=== PATIENT | male | born 1970 | race Caucasian/White ===

== ENCOUNTER 2020-02-21 15:30 | Outpatient (RCR) | payer OTHER, SELFPAY ==
--- NOTE | 2020-01-01 08:23 | HP.PTEVAL ---
Patient's Visit Information NAOMY RIGGINS is a 49 year old M referred to Physical Therapy by Dr. Ritchie Robertson MD with a diagnosis of cervical DDD, L superior glenoid labrum lesion, L rotator cuff tear. Date of Evaluation: 12/31/19 Physical Therapist: Issac Andres DPT - Visit Plan Frequency: 5x /Week Duration: 4 Weeks Plan: Start with work condition exercises. Focus on B UE strength/endurance. Add in overhead strengthening. Include cardiovascular exercises as well. 1st week x5 days at 2 hours. 2nd week 3 hours x5 days, 3rd and 4th weeks 4 hours x5 days a week. - Subjective Pt. is here today for his initial evaluation with diagnosis of cervical DDD, strain of thoracic wall, L shoulder strain, L superior glenoid labrum lesion, L rotator cuff tear. Pt. in 2018 had an accident at work when he caught a heavy piece of equipment resulting in L neck pain and L shoulder pain. Subsequently a C6/C7 fusion and L RTC repair. Pt. has been out of work for ~2 years. 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 Pt. is hopeful to get back to all work and recreational activities without limitations. He is no longer taking a pain medications. No N/T in either UE. Pt. reports no difficulty with sleeping. He is having trouble with his strength. I don't feel comfortable raising weight ove rmy head. Work activities: Pt. reports having to lift upto 100lbs about head height, bending down lifting objects of the floor, getting on/off floor, does have to get in akward positions with his arm and back, he is also going to have to work for minutes with arm over his head. - Pain Cervical spine Pain Intensity (Out of 10): 0 L shoulder Pain Intensity (Out of 10): 0 Pain Intensity Range: 2 Comment: with activity, recduces with in a few hours - Objective POSTURE: Pt. has decent posture in stance. He has normal cervical spine positoning. Pt. has slight rounded shoulders, but minimall. Pt is able to correct with Vcing. PALPATION: Pt. has tenderness as subacromial space on L shoulder and slight soreness at L UT. No pain other vazquez. NEURO: Pt. has no sensation loss and normal DTR of BUEs. ROM: AROM: CERVICAL SPINE: flexion- min/nil loss NE, extension- min/nil loss NE, rotation- nil loss NE bilat, SB min/nil loss NE bilat. AROM: L shoulder- flexion 172deg, abd 175deg, functional ER C6, functional IR L3. MIld increase in soreness with overhead and functional IR motions. 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 R shoulder- flexion 38.8lbs, abd 37.9lbs, ER 31.1lbs, IR 50Lbs. L shoulder; flex 25lbs, abd 24.9; ER 21.4lbs, IR 32.8lbs Good LE strength, no issues with this musculature. overhead fleixon 15.7 at 170deg of flexon. GAIT: Pt. has normal gait pattern no issues. 6 MWT- .23miles on treadmill - Goals Goal 1:: LTG: Pt. to be I with HEP. Goal Time Frame: 4-6 Weeks Goal 2:: STG: Pt. to tolerate 3 hours of physicial activity. Goal Time Frame: 2-4 Weeks Goal 3:: LTG: Pt. to tolerate hours or physical activity. Goal Time Frame: 4-6 Weeks Goal 4:: LTG: Pt to lift 15lbs over head for 15 reps with LUE. Goal Time Frame: 4-6 Weeks Goal 5:: LTG: Pt. to have increased L shoulder strength by 5lbs in all effected L shoulder musculature. Goal Time Frame: 4-6 Weeks Goal 6:: LTG: Pt. to have increased overall cardiovascular fitness indicated by walking 0.36 miles during 6 MWT. Goal Time Frame: 4-6 Weeks - Rehabilitation Potential Physical Therapy Diagnosis: Pt. has signs and symptoms consistent with Cervcial spinal fusion and R RTC tear,biceps tear with subsequent repair. Pt. would benefit from work conditioning program to increase over head L UE strength, LUE strength, overall endurance to increase work tolerance. Rehabilitation Potential: Excellent - Anticipated Interventions Patient/Client Instruction: Educate patient on: Condition, Plan of Care, Risk Factors, Benefits of Fitness Program For the Purpose of:: To improve decision making, To facilitate caregiver knowledge, To improve self management, To prevent re-injury, To improve ability to perform tasks related to life management, To improve tolerance to ADL's Therapeutic Exercise to Include: Strength training, Endurance training For the Purpose of:: To decrease pain, To increase ROM, To improve nutrient delivery to tissue, To increase oxygenation perfusion Functional Training to Include: Functional work training For the Purpose of:: To improve muscle performance and motor function, To improve ability to perform ADL's, To increase flexibility/ROM Thank you for the opportunity to evaluate your patient. For Medicare and Medicare HMO plans, please review the plan of care and approve it. It will need to be FAXED BACK to us at [phone] for Medicare purposes. For Medicare only, by signing this I certify the plan of care. Please let me know if there are questions or concerns regarding this plan of care. Physician Signature: Date:
--- NOTE | 2020-01-18 09:15 | HP.PTREVAL ---
Dr. Ritchie Robertson MD, It has been my pleasure to treat NAOMY RIGGINS over the last 14 visits for cervical DDD, L superior glenoid labrum lesion, L rotator cuff tear. Please see the progress note below for an update on the physical therapy plan of care! Subjective: Pt reports being generally sore this date. C/o inc soreness in R knee. Other than knee being sore states he is feeling stronger. Objective/Function: Did not complete LE exs this date d/t R knee soreness. Focused on UE exs and LE stretching. Pt was able to complete 15 reps of L shoulder overhead press w/ 15# KB. Pt displayed inc L shoulder strength by at least 5# in all planes. He is doing well tolerating 3+ hours of work conditioning at this point in time. He is very consistent with his exercises adn activities and is a hard worker. I am pleased with his progress at this point intime. He does have some soreness in L shoulder with repetative overhead activities, but is minimal. He is also experiencing some mild L knee pain, but is overalling doing well. Plan Plan: Start with work condition exercises. Focus on B UE strength/endurance. Add in overhead strengthening. Include cardiovascular exercises as well. 1st week x5 days at 2 hours. 2nd week 3 hours x5 days, 3rd and 4th weeks 4 hours x5 days a week. Patient may benefit from easing back into work 4 hours a day and maybe coming to therapy x1 hour a day for a week to ease back into work. Goals Goal 1:: LTG: Pt. to be I with HEP. Goal Time Frame: 4-6 Weeks Goal Progress: Progressing Goal 2:: STG: Pt. to tolerate 3 hours of physicial activity. Goal Time Frame: 2-4 Weeks Goal Progress: Goal Met Goal 3:: LTG: Pt. to tolerate 6 hours of physical activity. Goal Time Frame: 4-6 Weeks Goal Progress: Progressing Goal 4:: LTG: Pt to lift 15lbs over head for 15 reps with LUE. NEW GOAL 01/17/20: Pt to lift 20lbs over head for 15 reps with LUE. Goal Time Frame: 4-6 Weeks Goal Progress: Progressing Goal 5:: LTG: Pt. to have increased L shoulder strength by 5lbs in all effected L shoulder musculature. NEW GOAL 01/17/20: Pt to have increased L shoulder strength by 10lbs in all effected shoulder musculature. Goal Time Frame: 4-6 Weeks Goal Progress: Progressing Goal 6:: LTG: Pt. to have increased overall cardiovascular fitness indicated by walking 0.36 miles during 6 MWT. Goal Time Frame: 4-6 Weeks Anticipated Interventions Patient/Client Instruction: Educate patient on: Condition, Plan of Care, Risk Factors, Benefits of Fitness Program For the Purpose of:: To improve decision making, To facilitate caregiver knowledge, To improve self management, To prevent re-injury, To improve ability to perform tasks related to life management, To improve tolerance to ADL's Therapeutic Exercise to Include: Strength training, Endurance training For the Purpose of:: To decrease pain, To increase ROM, To improve nutrient delivery to tissue, To increase oxygenation perfusion Functional Training to Include: Functional work training For the Purpose of:: To improve muscle performance and motor function, To improve ability to perform ADL's, To increase flexibility/ROM Please do not hesitate to contact me at [phone] by phone or if you have questions or concerns regarding this new plan of care! Sincerely, Issac Andres DPT
--- NOTE | 2020-02-07 07:53 | HP.PTREVAL ---
Dr. Ritchie Robertson MD, It has been my pleasure to treat NAOMY RIGGINS over the last 25 visits for cervical DDD, L superior glenoid labrum lesion, L rotator cuff tear. Please see the progress note below for an update on the physical therapy plan of care! Subjective: Pt reports having inc pain and soreness in L shoulder this date. Believes it is from holding things out in front of him for extended periods of time. States the soreness does not seem to be getting better from day to day at work. He is still having pain after work 3-07/12 pain that is worse as the week goes on. Objective/Function: Pt jj exs well w/ no inc in s/s. Pt reported a decrease in L shoulder/neck pain from 11/11 to 06/11. Would recommend continuing w/ 4 hour work days for about 2 weeks and continuing w/ PT sessions 2-3x/wk during that time. Pt would benefit from further PT intervention d/t still having difficulties w/ work tolerance while only working half days. Pt has demonstrated that continued PT intervention has been beneficial in reducing pain status and relieving tightness in the L shoulder/neck region. Pt also believes this is the correct way to go from here to allow himself more time to increase his tolerance to work activities. Plan Plan: I would recommend that he continue on his 4 hour a day schedule at least for another week or two allowing him to have better tolerance and reduced symptoms after his work day prior to extending his hours. PT is helping with reducing his symptoms after work, but is progressing with self management, but not quite there yet. Goals Goal 1:: LTG: Pt. to be I with HEP. Goal Time Frame: 4-6 Weeks Goal Progress: Progressing Goal 2:: STG: Pt. to tolerate 3 hours of physicial activity. Goal Time Frame: 2-4 Weeks Goal Progress: Goal Met Goal 3:: LTG: Pt. to tolerate 6 hours of physical activity. Goal Time Frame: 4-6 Weeks Goal Progress: Progressing Goal 4:: LTG: Pt to lift 15lbs over head for 15 reps with LUE. NEW GOAL 01/17/20: Pt to lift 20lbs over head for 15 reps with LUE. Goal Time Frame: 4-6 Weeks Goal Progress: Progressing Goal 5:: LTG: Pt. to have increased L shoulder strength by 5lbs in all effected L shoulder musculature. NEW GOAL 01/17/20: Pt to have increased L shoulder strength by 10lbs in all effected shoulder musculature. Goal Time Frame: 4-6 Weeks Goal Progress: Progressing Goal 6:: LTG: Pt. to have increased overall cardiovascular fitness indicated by walking 0.36 miles during 6 MWT. Goal Time Frame: 4-6 Weeks Anticipated Interventions Patient/Client Instruction: Educate patient on: Condition, Plan of Care, Risk Factors, Benefits of Fitness Program For the Purpose of:: To improve decision making, To facilitate caregiver knowledge, To improve self management, To prevent re-injury, To improve ability to perform tasks related to life management, To improve tolerance to ADL's Therapeutic Exercise to Include: Strength training, Endurance training For the Purpose of:: To decrease pain, To increase ROM, To improve nutrient delivery to tissue, To increase oxygenation perfusion Functional Training to Include: Functional work training For the Purpose of:: To improve muscle performance and motor function, To improve ability to perform ADL's, To increase flexibility/ROM Please do not hesitate to contact me at [phone] by phone or if you have questions or concerns regarding this new plan of care! Sincerely, Issac Andres DPT
--- NOTE | 2020-02-11 07:56 | HP.PTREVAL ---
Dr. Ritchie Robertson MD, It has been my pleasure to treat NAOMY RIGGINS over the last 26 visits for cervical DDD, L superior glenoid labrum lesion, L rotator cuff tear. Please see the progress note below for an update on the physical therapy plan of care! Subjective: Pt. reports that he is slowly increasing his tolerance to all work activities. He is working 4 hours a day 5 days a week now. He is still getting pain in L UT and L shoulder at the end of the day, worsening as the week goes on. He is HEP compliant and reports stretcing in evenings after work does help. No mechanical events that have caused sharp pains noted. Objective/Function: I did a lot of L shoulder stretching this date as he was sore from work day. He did have good relief after wards. He has overall good mobility still. He has been having some pain at subacromial joint, but improves with stretching. He is tolerating his current work schedule, but not much else. He would most likely benefit from continued schedule until have better tolerance to this as he is having higher than desired levels of pain by the end of the day. He is also reporting some L UT and thoracic spine tightness/stifffness. He might benefit from some chiropratic care to reduce this acute stiffness as well. Plan Plan: I would recommend continued PT a couple times per week for general stretching guidence and some RTC stability and possibly chiro care to work on thoracic spine. Goals Goal 1:: LTG: Pt. to be I with HEP. Goal Time Frame: 4-6 Weeks Goal Progress: Goal Met Goal 2:: STG: Pt. to tolerate 3 hours of physicial activity. Goal Time Frame: 2-4 Weeks Goal Progress: Goal Met Goal 3:: LTG: Pt. to tolerate 6 hours of physical activity. Goal Time Frame: 4-6 Weeks Goal Progress: Progressing Goal 4:: LTG: Pt to lift 15lbs over head for 15 reps with LUE. NEW GOAL 01/17/20: Pt to lift 20lbs over head for 15 reps with LUE. Goal Time Frame: 4-6 Weeks Goal Progress: Goal Met Goal 5:: LTG: Pt. to have increased L shoulder strength by 5lbs in all effected L shoulder musculature. NEW GOAL 01/17/20: Pt to have increased L shoulder strength by 10lbs in all effected shoulder musculature. Goal Time Frame: 4-6 Weeks Goal Progress: Goal Met Goal 6:: LTG: Pt. to have increased overall cardiovascular fitness indicated by walking 0.36 miles during 6 MWT. Goal Time Frame: 4-6 Weeks Goal Progress: Goal Met Anticipated Interventions Patient/Client Instruction: Educate patient on: Condition, Plan of Care, Risk Factors, Benefits of Fitness Program For the Purpose of:: To improve decision making, To facilitate caregiver knowledge, To improve self management, To prevent re-injury, To improve ability to perform tasks related to life management, To improve tolerance to ADL's Therapeutic Exercise to Include: Strength training, Endurance training For the Purpose of:: To decrease pain, To increase ROM, To improve nutrient delivery to tissue, To increase oxygenation perfusion Functional Training to Include: Functional work training For the Purpose of:: To improve muscle performance and motor function, To improve ability to perform ADL's, To increase flexibility/ROM Please do not hesitate to contact me at [phone] by phone or if you have questions or concerns regarding this new plan of care! Sincerely, KIRBY VasquezT
--- NOTE | 2020-02-22 09:39 | HP.PTREVAL ---
Dr. Ritchie Robertson MD, It has been my pleasure to treat NAOMY RIGGINS over the last 32 visits for cervical DDD, L superior glenoid labrum lesion, L rotator cuff tear. Please see the progress note below for an update on the physical therapy plan of care! Subjective: Pt reports that his shoulder is feeling a little more stiff and sore today. Pt. is to follow up with physician for her L shoulder next week. Overall he reports slowly incease in tolerance to work activities, but does feel like it is better recently after reducing some overhead activities at work. Objective/Function: Pt jj exs well w/ no inc in symptoms. Pain was reduced to 2/10 at end of session. Plan Plan: Pt. to follow up with L shoulder physician next week. Goals Goal 1:: LTG: Pt. to be I with HEP. Goal Time Frame: 4-6 Weeks Goal Progress: Goal Met Goal 2:: STG: Pt. to tolerate 3 hours of physicial activity. Goal Time Frame: 2-4 Weeks Goal Progress: Goal Met Goal 3:: LTG: Pt. to tolerate 6 hours of physical activity. Goal Time Frame: 4-6 Weeks Goal Progress: Progressing Goal 4:: LTG: Pt to lift 15lbs over head for 15 reps with LUE. NEW GOAL 01/17/20: Pt to lift 20lbs over head for 15 reps with LUE. Goal Time Frame: 4-6 Weeks Goal Progress: Goal Met Goal 5:: LTG: Pt. to have increased L shoulder strength by 5lbs in all effected L shoulder musculature. NEW GOAL 01/17/20: Pt to have increased L shoulder strength by 10lbs in all effected shoulder musculature. Goal Time Frame: 4-6 Weeks Goal Progress: Goal Met Goal 6:: LTG: Pt. to have increased overall cardiovascular fitness indicated by walking 0.36 miles during 6 MWT. Goal Time Frame: 4-6 Weeks Goal Progress: Goal Met Anticipated Interventions Patient/Client Instruction: Educate patient on: Condition, Plan of Care, Risk Factors, Benefits of Fitness Program For the Purpose of:: To improve decision making, To facilitate caregiver knowledge, To improve self management, To prevent re-injury, To improve ability to perform tasks related to life management, To improve tolerance to ADL's Therapeutic Exercise to Include: Strength training, Endurance training For the Purpose of:: To decrease pain, To increase ROM, To improve nutrient delivery to tissue, To increase oxygenation perfusion Functional Training to Include: Functional work training For the Purpose of:: To improve muscle performance and motor function, To improve ability to perform ADL's, To increase flexibility/ROM Please do not hesitate to contact me at [phone] by phone or if you have questions or concerns regarding this new plan of care! Sincerely, KIRBY VasquezT
--- NOTE | 2020-05-14 10:12 | HP.PT.NRP ---
NAOMY RIGGINS was seen in my office for initial evaluation on 12/31/19. The following Plan of Care was established for this patient: Initial Frequency: 5x /Week Initial Duration: 4 Weeks Patient/Client Instruction: Educate patient on: Condition, Plan of Care, Risk Factors, Benefits of Fitness Program For the Purpose of:: To improve decision making, To facilitate caregiver knowledge, To improve self management, To prevent re-injury, To improve ability to perform tasks related to life management, To improve tolerance to ADL's Therapeutic Exercise to Include: Strength training, Endurance training For the Purpose of:: To decrease pain, To increase ROM, To improve nutrient delivery to tissue, To increase oxygenation perfusion Functional Training to Include: Functional work training For the Purpose of:: To improve muscle performance and motor function, To improve ability to perform ADL's, To increase flexibility/ROM This patient was last seen in our office 02/21/20. Pertinent comments regarding their Physical therapy will appear below: Pt. did well with PT. He progress well with his work conditioning progression. He was back to work 6+ hours a day when I last saw him and was tolerating better by the week. He has not been seen in several weeks and will be DC from PT at this point in time. At this point I will be discontinuing this patient from physical therapy. I would be happy to see this patient again in the future if found appropriate by the physician. Thank you! Issac Andres, KIRBYT
== END 2020-02-21 19:00 | disposition home or self-care (01) ==
LOC: PT 15:30
PROVIDERS: PCP Family Medicine; Referring Provider Chiropractor; Visit Provider Chiropractor
DX: M50.323 Other cervical disc degeneration at C6-C7 level (principal); M99.51 Intervertebral disc stenosis of neural canal of cervical region; S29.012D Strain of muscle and tendon of back wall of thorax, subsequent encounter; S16.1XXD Strain of muscle, fascia and tendon at neck level, subsequent encounter; S43.432D Superior glenoid labrum lesion of left shoulder, subsequent encounter; S46.012D Strain of muscle(s) and tendon(s) of the rotator cuff of left shoulder, subsequent encounter
CPT/HCPCS: 97161

== ENCOUNTER 2022-09-13 08:17 | Outpatient (RCR) | payer OTHER, SELFPAY | END 2022-09-13 15:16 | disposition home or self-care (01) | LOC: OT 08:17 | PROVIDERS: PCP Student in an Organized Health Care Education/Training Program; Referring Provider Chiropractor; Visit Provider Chiropractor | DX: S46.012D Strain of muscle(s) and tendon(s) of the rotator cuff of left shoulder, subsequent encounter (principal); S29.012D Strain of muscle and tendon of back wall of thorax, subsequent encounter; M99.51 Intervertebral disc stenosis of neural canal of cervical region; M50.323 Other cervical disc degeneration at C6-C7 level; S43.402D Unspecified sprain of left shoulder joint, subsequent encounter; S16.1XXD Strain of muscle, fascia and tendon at neck level, subsequent encounter; S43.432D Superior glenoid labrum lesion of left shoulder, subsequent encounter; M50.322 Other cervical disc degeneration at C5-C6 level ==

== ENCOUNTER → 2022-09-28 | Outpatient (CLI) | payer OTHER, SELFPAY ==
--- NOTE | 2022-09-28 | ASPOS_PTH ---
PATIENT: NAOMY RIGGINS LOC: LAB U#:[id number] AGE/SX: 52/M ROOM: RE09/28/[address]: Dr. Ernesto Cruz MD : 1970 BED: DIS: 09/28/2022 SPEC #: [id number] RECD: 09/28/22 11:39 STATUS: NIELS SIMON #: [id number] CRIS: 09/28/22 00:[address]: Ernesto Cruz DEPT: CYTOLOGY RECD BY: Alfredo Rogel ENTERED: 09/28/22 11:39 SP TYPE: ASP HERE OTHR DR: Dr. Johnie Pompa, DO Tissues: Neck, NOS Procedures: Surgery Specimen Level IV Cytology Other Fine Needle Asp on Site HEADER OPERATION: Fine needle aspiration submental mass PRE-OP DIAGNOSIS: Submental mass TISSUE SUBMITTED: Submental mass DIAGNOSIS CYTOLOGY Fine needle aspiration, submental mass (smears and cell block): Consistent with epidermal inclusion cyst. AM:olivia 09/29/2022 COMMENT A fine needle aspiration was performed and the specimen is evaluated at the time of FNA by Dr. Velasco. Immediate Evaluation = Consistent with epidermal inclusion cyst. CYTOLOGY STUDY Slides are reviewed. CYTOLOGY GROSS Received is 0.2 ml of lai material labeled with the patient's name, and designated submental mass. Four imprints and two paps are made from the submitted fluid and the rest is added to CytoLyt for cell block preparation. Submitted for cytology study. / AM:olivia 09/28/2022 TC:5 CPT: 52602, 17758, 00619, 41219
== END | disposition home or self-care (01) ==
LOC: LAB 09:21
PROVIDERS: PCP Student in an Organized Health Care Education/Training Program; Referring Provider Otolaryngology; Visit Provider Otolaryngology
DX: R22.1 Localized swelling, mass and lump, neck (principal)
CPT/HCPCS: 10021; 88161; 88305

== ENCOUNTER 2022-11-24 07:00 | Outpatient (RCR) | payer OTHER, SELFPAY ==
--- NOTE | 2022-06-17 12:04 | HP.PTEVAL_ITS ---
Patient's Visit Information NAOMY RIGGINS is a 51 year old M referred to Physical Therapy by Dr. Ritchie Robertson MD with a diagnosis of L shoulder pain. Date of Evaluation: 06/17/22 Physical Therapist: Ritchie Puente, PT, ATC - Visit Plan Frequency: 3x /Week Duration: 6 Weeks Plan: R shoulder advanced rotator cuff strengthening, scap stab ex's, UBE, and HEP - Subjective DOI 12/23/2017. Pt reports he injured his L shoulder and neck at work at that time. Pt notes he has since had 1 neck surgery and 2 shoulder surgeries. Pt reports his shoulder and neck did recover well enough to return to work, but while he was working, he had to perform duties that were beyond his work restrictions which has resulted in the return of L shoulder pain. Pt reports his last surgery was november of 2021, and he did outpatient therapy through May of this year. Pt reports he is now here for 6 more weeks of PT, and then he will be transitioning to work conditioning for another 8 weeks. Pt reports he has occasional tingling in lateral 2 fingers of L hand. Pt reports his L shoulder never stops aching, which results in significant sleep difficulty at this time. Pt is R hand dominant. Pt reports any overhead lifting is what causes him the most pain. L shoulder pain ranges right now from 6-8/10. - Pain L shoulder pain Pain Intensity (Out of 10): 6 Pain Intensity Range: 8 - Objective Neuro: B UE sensation is WNL to light touch. B bicipital reflex= 2/3. Palpation: Pt is still sore along the distribution of the supraspinatus and LHB tendons. ROM: R shoulder flex= 180, abd= 170, ER= 50, IR WNL; L shoulder flex= 135, abd= 125, ER= 35, IR= WNL. MMT: R shoulder flex= 26, abd= 34, ER= 21, IR= 28 #F; L shoulder flex= 10, abd= 10, ER= 18, IR= 6.5 #F - Balance/Special Test Scores Quick DASH Score: 43.1800 - Goals Goal 1:: Decrease L shoulder pain x 50% to aid with sleep Goal Time Frame: 4-6 Weeks Goal 2:: Increase L shoulder ROM flexion and abduction x 30 degrees to aid with overhead lifting Goal Time Frame: 4-6 Weeks Goal 3:: Increase L shoulder flexion and abduction strength x 10 #F to aid with overhead activity Goal Time Frame: 4-6 Weeks Goal 4:: I with HEP Goal Time Frame: 4-6 Weeks - Rehabilitation Potential Physical Therapy Diagnosis: L shoulder pain, weakness, and limited ROM secondary to L shoulder labral tear Rehabilitation Potential: Good - Anticipated Interventions Patient/Client Instruction: Educate patient on: Condition, Plan of Care For the Purpose of:: To improve self management Therapeutic Exercise to Include: Strength training, Endurance training, Scapular Strength/Stabilization For the Purpose of:: To decrease pain, To increase ROM, To improve muscle performance and motor function Cryotherapy (ice pack, ice massage): Yes For the Purpose of:: To decrease pain Thank you for the opportunity to evaluate your patient. For Medicare and Medicare HMO plans, please review the plan of care and approve it. It will need to be FAXED BACK to us at [phone] for Medicare purposes. For Medicare only, by signing this I certify the plan of care. Please let me know if there are questions or concerns regarding this plan of care. Physician Signature: Da te:
--- NOTE | 2022-07-07 08:00 | HP.PTREVAL ---
Dr. Ritchie Robertson MD, It has been my pleasure to treat NAOMY RIGGINS over the last 9 visits for L shoulder pain. Please see the progress note below for an update on the physical therapy plan of care! Subjective: I was really sore after last visit. Objective/Function: L shoulder pain ranges from 6-9/10 at this time. L shoulder ROM: flex= 140, abd= 130 degrees. L shoulder MMT: flex= 13, abd= 16 #F. Pt is progressing well at this time. Plan Plan: R shoulder advanced rotator cuff strengthening, scap stab ex's, UBE, and HEP Balance/Gait/Functional tests - Balance/Special Test Scores Quick DASH Score: 40.9075 Goals Goal 1:: Decrease L shoulder pain x 50% to aid with sleep Goal Time Frame: 4-6 Weeks Goal Progress: Progressing Goal 2:: Increase L shoulder ROM flexion and abduction x 30 degrees to aid with overhead lifting Goal Time Frame: 4-6 Weeks Goal Progress: Progressing Goal 3:: Increase L shoulder flexion and abduction strength x 10 #F to aid with overhead activity Goal Time Frame: 4-6 Weeks Goal Progress: Progressing Goal 4:: I with HEP Goal Time Frame: 4-6 Weeks Goal Progress: Progressing Anticipated Interventions Patient/Client Instruction: Educate patient on: Condition, Plan of Care For the Purpose of:: To improve self management Therapeutic Exercise to Include: Strength training, Endurance training, Scapular Strength/Stabilization For the Purpose of:: To decrease pain, To increase ROM, To improve muscle performance and motor function Cryotherapy (ice pack, ice massage): Yes For the Purpose of:: To decrease pain Please do not hesitate to contact me at [phone] by phone or if you have questions or concerns regarding this new plan of care! Sincerely, Ritchie Puente, PT, ATC
--- NOTE | 2022-09-15 11:08 | HP.OTFCE_ITS ---
Floor (Occasional 1-33% of Day): 40# light medium Floor (Frequent 34-66% of Day): 20# light medium Floor (Constant 67-100% of Day): 4.2# negligable Floor PDL: Light-Medium Knee (Occasional 1-33% of Day): 60# medium Knee (Frequent 34-66% of Day): 30# medium Knee (Constant 67-100% of Day): 12.6# medium Knee PDL: Medium Waist (Occasional 1-33% of Day): 60# medium Waist (Frequent 34-66% of Day): 30# medium Waist (Constant 67-100% of Day): 12.6# medium Waist PDL: Medium Shoulder (Occasional 1-33% of Day): 40# light medium Shoulder (Frequent 34-66% of Day): 20# light medium Shoulder (Constant 67-100% of Day): 8.4# light medium Shoulder PDL: Light-Medium Overhead (Occasional 1-33% of Day): 40# light medium Overhead (Frequent 34-66% of Day): 20# light medium Overhead (Constant 67-100% of Day): 8.4# light medium Overhead PDL: Light-Medium Comments: most difficulty with overhead lifting Bending: Constant Ability (67-100% of day) Squatting: Occasional Ability (1-33% of day) Comments: low occasional due to arthritic knees and increased pain Kneeling: No Ablility (0% of day) Comments: due to arthritic knees Reaching out: Constant Ability (67-100% of day) Reaching up: Constant Ability (67-100% of day) Sitting: Constant Ability (67-100% of day) Walking: Constant Ability (67-100% of day) Standing: Constant Ability (67-100% of day) Duration Sedentary Sedentary Light Light Light Medium Medium Medium Heavy Very Heavy Heavy Occasional (0-33% of day) Frequent (34-66% of day) Constant (67-100% of day) 10 # Negligible Negligible 15 # 8 # Negligible 20 # 10# Negli. 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 Continued working and rec'd rehab for 12 weeks. June 2018 - neck surgery fusion cervical spine 5, 6, 7 vertebrae. May of 2019 - shoulder surgery to fix bicep and tendon - Off work this entire time /c workers comp. Started back working Fall 2019 and then re-injured shoulder in February 2021 and then had surgery in July. July of 2021 - labral tear/rotator cuff second shoulder surgery. At this time patient stopped working and has been on workers comp since. . Patellar arthritis bilaterally - cortisone injections in B knees every 4 months. Reports it only lasts a couple days. arthritis affecting all joints of his body, most impacted by his knees. history of decreased heart function - recent improvement in heart function from new heart medication, 45% to 50% heart function. history of hypertension. Medications currently taking: blood pressure medications. heart medication ranolazine - 500 mg BID to strengthen heart. allergy meds. inhaler/asthma early stages of COPD. PRN motrin. PRN prilosec. 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 arthritis in all joints - and reports he is experiencing nerve compression in the joints as wel Symptoms: at rest: L shoulder aches all the time. with activity/movement: popping feeling in the L shoulder with anterior reaching, fatigue and slow recovery time, deep ache that gets worse with activity. tingling in L 4th and 5th digits comes and goes reports unrelated to activity - reports from ulnar nerve compression in the elbow/ narrowing of the passage of the nerve is causing this. shortness of breath with activity (September 23 getting a biopsy of a growth under chin - could be why he's feeling short of breath per his report) Pain: at rest L shoulder 3-4/10 (didn't take any motrin today so he can get a true pain reading). with activity: 6-7/10. 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 Job duties include standing the majority of the time, reaching and lifting overhead, squating, crawling, and a 100 pound lifting requirement. He is reaching and lifting overhead ~50% of the time. 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 Behavioral: Patient was cooperative and agreeable to participate in all activities of the task. He was able to maintain social eye contact and communicate verbally. ADLS: Patient is independent with activities of daily living and home mgmt tasks. home set-up: lives with in a multi-level home, 5 DINA with HR. Kitchen and living room on the main floor, no bathroom. Upstairs and basement with a handrail, 12 steps up or down. Bedroom upstairs. Walk in shower. Physical Examination: Patient well appearing, general ROM intact, able to use both arms/legs functionally. Indep with functional ambulation and transfers. Patient wears glasses. ROM: general range of motion within normal limits Strength: tested using the FET 2 dynamometer in pounds of force: R shoulder flexion/extension: 35.9/52.9. L shoulder flexion/extension: 19.3/26. R elbow flexion/extension: 27.2/35.8. L elbow flexion/extension: 24.1/12.7. R hip flexion: 36. L hip flexion: 31.3. R knee flexion/extension: 36/29. L knee flexion/extension: 31/39 Right Milk Truck Driver Strength Average: 142.33 Right Milk Truck Driver Strength Percentile: 84.1 Left Milk Truck Driver Strength Average: 59.00 Left Milk Truck Driver Strength Percentile: 1.8 Right Lateral Pinch Average: 26.00 Right Lateral Pinch Percentile: >90 Left Lateral Pinch Average: 13.66 Left Lateral Pinch Percentile: <10 percentile Right Tripod Pinch Average: 21.33 Right Tripod Pinch Percentile: 75th percentile Left Tripod Pinch Average: 13.00 Left Tripod Pinch Percentile: between 10 -25th percentile Comments: Patient consistently weaker with L handed activities and began to have some tremors toward the end of testing indicating fatigue Sensation: monofilament testing: all digits at 2.83 level sensation, indicating normal sensation. R index at 3.22 indicating slightly impaired sensation. Fine Motor: fine motor skills intact, no concerns reported or observed Balance: no loss of balance noted throughout assessment Bending: Patient demonstrated the ability to reach 3/3 times and 10/10 times without assist or difficulty. Patient's HR reached 104 immediately after. Squatting: Patient completed 3 squats and reported increased pain to 6/10 in B knees. Patient unable to complete 10 times consecutively due to reported pain. Patient's HR immediately after was 108. Kneeling: Patient with difficulty kneeling due to arthritis and pain in B knees. Patient with plans to have surgery for B knees. Reaching out/up: Completed reaching out and up 3 times, HR at 95. Then 10 times HR at 105. No difficulty noted. Walking: Patient ambulated for 15 minutes straight at a walking pace (2.8 speed). HR measured at 5 min: 129, then 10 min: 130, then 15 min: 127. No loss of balance or difficulty walking. Standing: Patient remained standing for ~30 minutes without needing seated rest break. No loss of balance or shortness of breath with standing tasks. Sitting: Patient demonstrated ability to sit for 60 minutes with no apparent distress or discomfort. Climbing Stairs: Patient used a reciprocal gait pattern to ascend and descend a flight of stairs. No loss of balance or assist needed. HR 124 after stairs. Floor Lift: maximum weight to lift is 40# from this height, patient relying heavily on R UE, denied pain with this lift Knee Lift: maximum weight to lift is 60# from this height, good performance with this and good ergonomics with lifting Waist Lift: maximum weight to lift is 60# from this height, good ergonomics with lifting Shoulder Lift: maximum weight to lift is 40# from this height, more difficulty noted at this height Overhead Lift: maximum weight to lift is 25# from this height, more difficulty noted at this height Carrying: maximum weight to lift is 40# from this height, HR after 116 Comments: most difficulty with overhead lift
--- NOTE | 2022-09-15 11:08 | HP.OTFCE.D ---
FCE D/C Summary - Discharge NAOMY Joslyn VAISHNAVI was seen for a one time visit for an FCE on 09/13/22 and is discharged.
--- NOTE | 2022-10-29 07:43 | HP.PTREVAL ---
Re-Evaluation Intro: Dr. Ritchie Robertson MD, It has been my pleasure to treat NAOMY RIGGINS over the last 63 visits for L shoulder pain. Please see the progress note below for an update on the physical therapy plan of care! Subjective Subjective: Pt reports his pain remains at approximately 5/10. Pt notes it does increase to a little higher (7/10) at times. Objective Objective/Function: L shoulder pain ranges from 5-7/10 L shoulder ROM: flex= 165, abd= 170, ER= 45, IR= WNL L shoulder MMT: flex= 25, abd= 35, ER= 30, IR= 31 #F Pt has shown great improvements with strength and ROM, pain is still a major limitation Plan Plan Plan: Cont L shoulder work conditioning and strengthening for one hour sessions (3x a week for now). Balance/Gait/Functional tests Balance/Special Test Scores Quick DASH Score: 20.4525 Goals Goals Goal 1:: Decrease L shoulder pain x 50% to aid with sleep Goal Time Frame: 4-6 Weeks Goal Progress: Progressing Goal 2:: Increase L shoulder ROM flexion and abduction x 30 degrees to aid with overhead lifting Goal Time Frame: 4-6 Weeks Goal Progress: Goal Met Goal 3:: Increase L shoulder flexion and abduction strength x 10 #F to aid with overhead activity Goal Time Frame: 4-6 Weeks Goal Progress: Goal Met Goal 4:: I with HEP Goal Time Frame: 4-6 Weeks Goal Progress: Goal Met Goal 5:: Pt will perform work type duties without increasing R shoulder pain. Goal Time Frame: 4-6 Weeks Goal Progress: Progressing Anticipated Interventions Anticipated Interventions Patient/Client Instruction: Educate patient on: Condition and Plan of Care For the Purpose of:: To improve self management Therapeutic Exercise to Include: Strength training, Endurance training and Scapular Strength/Stabilization For the Purpose of:: To decrease pain, To increase ROM and To improve muscle performance and motor function Cryotherapy (ice pack, ice massage): Yes For the Purpose of:: To decrease pain Re-Evaluation Ending Re-evaluation ending: Please do not hesitate to contact me at [phone] by phone or if you have questions or concerns regarding this new plan of care! Sincerely, Ritchie Puente, PT, ATC
--- NOTE | 2022-11-24 08:00 | HP.PTDCSUM ---
Discharge Summary D/C summary: It has been my pleasure to treat NAOMY RIGGINS referred by Dr. Ritchie Robertson MD, with the diagnosis of L shoulder pain for a total of 73 visit(s). Discharge Date: Please see the following information for a summary of their discharge status. Subjective Subjective: Pt reports L shoulder is sore today from his ex's yesterday. Pt feels like he is not back to where he wants to be, but knows WC is probably going to deny further treatment Pain L shoulder pain: Pain Intensity (Out of 10): 4 Bilateral knees: Pain Intensity (Out of 10): Unrated Overall Improvement % Improvement: 80 Objective Objective/Function: L shoulder pain ranges from 4-5/10 L shoulder ROM: flex= 160, abd= 175, IR= WNL when compared bilaterally, ER= 45 degrees L shoulder MMT: flex= 27, abd= 39, IR= 37, ER= 28 #F Pt shows excellent progress with strength and ROM, pain remains his limiting factor Goals Goal 1:: Decrease L shoulder pain x 50% to aid with sleep Goal Progress: Progressing Goal 2:: Increase L shoulder ROM flexion and abduction x 30 degrees to aid with overhead lifting Goal Progress: Goal Met Goal 3:: Increase L shoulder flexion and abduction strength x 10 #F to aid with overhead activity Goal Progress: Goal Met Goal 4:: I with HEP Goal Progress: Goal Met Goal 5:: Pt will perform work type duties without increasing L shoulder pain. Goal Progress: Progressing Plan Plan: Discontinue to HEP D/C Information d/c sentence: If there are questions or concerns regarding this patient's physical therapy, please feel free to call me at [phone]. Thank you for the referral of this patient. Sincerely, Ritchie Puente, PT, ATC Balance/Gait/Functional tests Balance/Special Test Scores Quick DASH Score: 20.4532
== END 2022-11-24 09:21 | disposition home or self-care (01) ==
LOC: PT 07:00
PROVIDERS: PCP Student in an Organized Health Care Education/Training Program; Referring Provider Chiropractor; Visit Provider Chiropractor
DX: S46.012A Strain of muscle(s) and tendon(s) of the rotator cuff of left shoulder, initial encounter (principal); S29.012A Strain of muscle and tendon of back wall of thorax, initial encounter; M99.51 Intervertebral disc stenosis of neural canal of cervical region; M50.323 Other cervical disc degeneration at C6-C7 level; S43.402A Unspecified sprain of left shoulder joint, initial encounter; S16.1XXA Strain of muscle, fascia and tendon at neck level, initial encounter; S43.432A Superior glenoid labrum lesion of left shoulder, initial encounter; M50.322 Other cervical disc degeneration at C5-C6 level
CPT/HCPCS: 97110; 97161; 97164; 97750

== ENCOUNTER 2023-10-20 07:00 | Outpatient (RCR) | payer OTHER, SELFPAY ==
--- NOTE | 2023-08-31 18:32 | HP.PTEVAL_ITS ---
Patient's Visit Information Visit Information Visit Information: NAOMY RIGGINS is a 52 year old M referred to Physical Therapy by MICHAEL ECKERT with a diagnosis of L shoulder strain. Date of Evaluation: 08/31/23 Physical Therapist: Issac Andres DPT Visit Plan Frequency: 2-3x /Week Duration: 6 Weeks Plan: 1) L shoulder multidirectional mobilizations grade III/IV to increase end range mobility. 2) deltoid, RTC and periscapular and biceps strengthening. 3) DMF to biceps 3) Ice and IFC for pain control if needed. Subjective Subjective: Pt. is here today for his initial evaluation of L shoulder RTC strain. Pt. did have L shoulder surgery last time in July. Pt. had a RTC tear and biceps tenodesis in the past. Pt. has been having increased pain and soreness over the past few months Pt. reports It feels like my biceps is getting caught. Pt. reports physician feels like there is some edema that is causing him issues. Pt. reports no N/T, but has felt cold (since his injury). He does have some issues with sleeping. Unemployed currently, but is hoping to get back to working. Pain L shoulder: Pain Intensity (Out of 10): 3 Pain Intensity Range: 0 and 9 Objective Objective: POSTURE: Pt. has decent posture in stance, slight rounded shoulders, but not too bad. PALPATION: pt. has some tenderness along bicipital groove, but this did not elicit his sharp pain. Minimal pain throughout subacromial space. NEURO: normal throughout B UEs. ROM: PROM: full ROM throughout L shoulder, mild increase NW symptoms and end ranges of flexion, ER motions. These did not elicit his sharp pain he was c/o. AROM: Pt. has good AROM of L shoulder, close to full without issues, mild joint pain. He did have increased catching pain his chief issue with H shoulder abduction and slight ER. This was not consistent, but occurred x3 times during eval. MMT: LUE: L shoulder: ER 28.8#, IR 32.4#, flexion 22.5#, abd 28.6##, elbow flexion; 36.7# R shoulder: ER 28.7#, IR 42.0#, flexion 30.2#, abd 36.3#, elbow flexion 52.3# Special Tests L Shoulder Lift Off Test - Subscapular Tear: Negative L Shoulder Drop Sign - IS Test: Negative L Shoulder Empty Can - SS: Negative L Shoulder Belly Press - SupScap: Negative L Shoulder Neer - Impingement: Negative L Shoulder [place] - Impingement: Negative L Shoulder Biceps Load Test - Labrum: Negative L Shoulder Speeds Test - Labrum/Biceps: Negative Balance/Special Test Scores Quick DASH Score: 34.0900 Goals Goal 1:: LTG: Pt. to be with HEP. Goal Time Frame: 4-6 Weeks Goal 2:: LTG: Pt. to be able to complete all work and recreational activities without increase in catching of his L shoulder. Goal Time Frame: 4-6 Weeks Goal 3:: LTG: Pt. to have symmetrical strength of B shoulders without increase in symptoms. Goal Time Frame: 4-6 Weeks Goal 4:: LTG: pt. to be able to complete all L shoulder ROM without increase in symptoms. Goal Time Frame: 4-6 Weeks Goal 5:: LTG: Pt. to sleep throughout the night without increase in L shoulder pain. Goal Time Frame: 4-6 Weeks Rehabilitation Potential Physical Therapy Diagnosis: Pt. has signs and symptoms consistent with a L shoulder RTC strain. Pt. has decent strength and good ROM. There was a difference in strength between the two shoulders, most significant at shoulder flexion and bicep flexion. Neither caused his symptom. His symptom was caused with H shoulder abd and ER motion combined. He reports feeling like something is catching. I would like to work on some joint mobilizations, DMF to biceps and shoulder strengthening in order to reduce symptoms allowing for better tolerance to all lifting and recreational activities. Rehabilitation Potential: Good Anticipated Interventions Patient/Client Instruction: Educate patient on: Condition, Plan of Care, Risk Factors and Benefits of Fitness Program For the Purpose of:: To improve decision making, To facilitate caregiver knowledge, To improve self management, To prevent re-injury, To improve ability to perform tasks related to life management and To improve tolerance to ADL's Therapeutic Exercise to Include: Strength training, Power training, Postural training, Passive ROM, Active ROM and Scapular Strength/Stabilization For the Purpose of:: To decrease pain, To decrease swelling/inflammation, To increase ROM, To improve nutrient delivery to tissue, To increase oxygenation perfusion, To improve muscle performance and motor function, To improve health of tissue, To decrease soft tissue restriction, To increase flexibility/ROM and To improve endurance Manual Therapy Techniques to Include: Mobilization and Soft tissue mobilization For the Purpose of:: To decrease pain, To decrease swelling/inflammation and To increase ROM IF ES: Yes Cryotherapy (ice pack, ice massage): Yes For the Purpose of:: To decrease pain, To decrease swelling/inflammation and To increase ROM Text: Thank you for the opportunity to evaluate your patient. For Medicare and Medicare HMO plans, please review the plan of care and approve it. It will need to be FAXED BACK to us at [phone] for Medicare purposes. For Medicare only, by signing this I certify the plan of care. Please let me know if there are questions or concerns regarding this plan of care. Physician Signature: ___Date:
--- NOTE | 2023-10-20 07:29 | HP.PTDCSUM ---
Discharge Summary D/C summary: It has been my pleasure to treat TOMMY RIGGINS referred by MICHAEL ECKERT, with the diagnosis of L shoulder strain for a total of 18 visit(s). Discharge Date: 10/20/23 Please see the following information for a summary of their discharge status. Subjective Subjective: Pt. reports having an ache in his shoulder 3/10 pain, more global. No marked sharp pain noted. Its like my joint is sore all the time. Pt. reports nothing really made his shoulder hurt during PT. He reports having an occasional catching this shoulder. Pt. reports being close to 75% better due to the frequency of his symptoms. Pain L shoulder: Pain Intensity (Out of 10): 3 Overall Improvement % Improvement: 75 Objective Objective/Function: AROM: full AROM without increase in symptoms over his baseline symptoms. MMT: L shoulder: flexion 31.5#, abd 27.5#, ER 30.1#, IR 33.7#, rhomboid 26.4#, lower trap 25.4# R shoulder: flexion 43.3#, abd 42.9#, ER 34.2#, IR 39.5#, rhomboid 45.9#, lower trap 45.9# Pt. reports with his right arm he feels stronger, but with his L he has more strain to it. Pt. has not gone back to work, but is able to complete all activities around the house. He still avoids lifting any weights over his head, he is still a little leery of dropping something if it is very heavy out of his cabinets or over head. He has improved with his L shoulder strength and the catching has reduced in frequency. His L shoulder is still not fully as strong has his R shoulder, but is improving. His biggest deficits are with periscapular musculature. After talking with Tommy I feel like him continuing his exercises on his own with focus on slowly progressing resistances is the best course of action. His catching has reduced, but it still does occur, pt. reports mostly with end range H abduction/extension with ER motions. But does not always occur, did not in PT this date. He is to follow up with his doctor of note in order to proceed as directed. I will reach out to his doctor of note this AM to follow up as well. Goals Goal 1:: LTG: Pt. to be with HEP. Goal Progress: Goal Met Goal 2:: LTG: Pt. to be able to complete all work and recreational activities without increase in catching of his L shoulder. Goal 3:: LTG: Pt. to have symmetrical strength of B shoulders without increase in symptoms. Goal Progress: Progressing Goal 4:: LTG: pt. to be able to complete all L shoulder ROM without increase in symptoms. Goal Progress: Goal Met Goal 5:: LTG: Pt. to sleep throughout the night without increase in L shoulder pain. Plan Plan: Pt. to be DC from PT to I HEP at this point in time. D/C Information Discharge Comments: Pt. will be DC from PT at this point in time. He has improved with his strength and the catching issue that brought him here has improved, but not fully abolished. He is to continue with his strengthening at home. I told him if the catching does not fully go away possibly following up with physician may be the best course of action. Overall he has improved with PT. d/c sentence: If there are questions or concerns regarding this patient's physical therapy, please feel free to call me at [phone]. Thank you for the referral of this patient. Sincerely, Issac Blanchard Sipos, DPT Balance/Gait/Functional tests Balance/Special Test Scores Quick DASH Score: [phone] Improvement % Improvement: 75
== END 2023-10-20 19:00 | disposition home or self-care (01) ==
LOC: PT 07:00
PROVIDERS: PCP Student in an Organized Health Care Education/Training Program
DX: S46.012D Strain of muscle(s) and tendon(s) of the rotator cuff of left shoulder, subsequent encounter (principal)
CPT/HCPCS: 97014; 97110; 97140; 97161; 97530; G0283